=== PATIENT | female | born 1950 | race Caucasian/White ===

== ENCOUNTER 2017-09-09 13:59 | Inpatient (IN) ==
[2017-09-09] MEDS ORDERED: Ampicillin/Sulbactam 3,000 MG in 0.9 % Sodium Chloride Mini Bag 100 ML IVPB SCH (20:00)
[2017-09-09] MEDS ORDERED: Naloxone 0.4 MG/ML INJ IVP PRN (20:11)
[2017-09-09] MEDS ORDERED: Dexamethasone 4 MG/ML VIAL IVP ONE (20:13)
--- NOTE | 2017-09-09 20:20 | Internal Med History&Physical ---
Date of Encounter: 09/09/17 Time of Encounter: 20:16 Internal Medicine - H&P: HPI Chief complaint: Sore throat History of present illness: Ms. Walters is a 67 year old female with a history of A. fib, hypertension, CAD status post stents in 2011 who presents with sore throat to [facility] ED. Was subsequently transferred to [facility] for management of strep a tonsillitis Patient reports acute onset three-day history of sore throat associated with difficulty swallowing - worse with solids better with liquids. Has odynophagia. Has body aches. Associated anorexia. Also reports feeling sweaty with chills. Reports that symptoms were acute in onset. On review of symptoms she had quit smoking 25 years ago. Smoked 2 packs per day for about 15-[address] and laboratory findings from [facility] was personally reviewed. CT soft tissue of the neck with contrast revealed bilateral cervical adenopathy associated with a masslike swelling of the tonsils, vallecula, epiglottis WBC 24.3, hemoglobin 14, platelets 232, bandemia 28%, creatinine 1.04, lactate 1.6 Past Med Surg Social Fam HX - Past Medical History Medical history: arthritis, atrial fibrillation, coronary artery disease, CVA, DVT, GERD, hyperlipidemia, hypertension, kidney stones, migraine, renal disease , syncope, TIA Psychiatric history: anxiety, depression - Past Surgical History Surgical History: hysterectomy, other Additional surgical history: laminectomy morphine pump cardiac stents bladder tuck - Social History Smoking Status: Former smoker Smokeless Tobacco Status: No Alcohol use: none Drug use: none - Family History Father Hx Family Cardiac Disorders: Yes Internal Medicine - H&P: Meds Amlodipine Besylate 2.5 mg PO DAILY 11/23/15 [History] Atorvastatin [Lipitor] 40 mg PO HS 11/23/15 [History] Cholecalciferol (D-3) [Vitamin D] 5,000 unit PO DAILY 11/23/15 [History] Clopidogrel [Plavix] 75 mg PO DAILY 11/23/15 [History] Dabigatran [Pradaxa] 150 mg PO BID 11/23/15 [History] Esomeprazole Magnesium [Nexium] 40 mg PO DAILY 11/23/15 [History] Nitroglycerin [Nitrostat] 0.4 mg SL AD PRN 11/23/15 [History] [place]-3/Dha/Epa/Fish Oil [Fish Oil 1,000 mg Softgel] 1 tab PO BID 11/23/15 [ History] Oxycodone HCl/Acetaminophen [Percocet 10-325 mg Tablet] 1 tab PO Q8H PRN [History] Promethazine HCl 12.5 mg PO BID PRN 11/23/15 [History] Temazepam [Restoril] 30 mg PO HS 11/23/15 [History] Ubidecarenone [Co Q10] 100 mg PO DAILY 11/23/15 [History] Citalopram [CeleXA] 10 mg PO DAILY #0 11/25/15 [Rx] Sotalol [Betapace] 120 mg PO Q12H #60 tablet 11/25/15 [Rx] 3 Allergy/AdvReac Type Severity Reaction Status Date / Time Metaxalone [From Skelaxin] Allergy Severe Hives Verified 06/26/17 09:06 acetaminophen [From Vicodin] AdvReac Severe Hives Verified 06/26/17 09:06 hydrocodone [From Vicodin] AdvReac Severe Hives Verified 06/26/17 09:06 All Systems PM: A 10-system review of systems was performed and is negative for pertinent findings except as documented above in the HPI. Review of systems: ROS 14 point review of systems reviewed as best as possible given presentation. Pertinent positive or negative as per HPI or otherwise reviewed as negative - Constitutional Vitals: Temp Pulse Resp BP Pulse Ox 97.6 F 73 16 133/85 93 09/09/17 18:45 09/09/17 18:45 09/09/17 18:45 09/09/17 18:45 09/09/17 18:45 Exam: General - AAO x 3 Psych - Appropriate affect/speech. No agitation Eyes - BELLE. Eye lids intact. No scleral icterus HEENT - scant whitish exudate along the back of her throat, cervical lymphadenopathy that is tender more on the right than the left Neuro - No gross peripheral or central neuro deficits on inspection Heart - Sinus. RRR. S1 and S2 present. No added HS/murmurs appreciated. No elevated JVD appreciated. Lung - Adequate air entry b/l, No crackles/wheezes appreciated GI - Soft, non-tender. No hepatosplenomegaly/ascites. BS+ - No CVA/suprapubic tenderness or palpable bladder distension Skin - Intact. No rash/petechiae/ecchymosis. Warm extremities - Assessment and plan (1) Strep tonsillitis Current Visit: Yes Status: Acute Assessment and plan: Discussed with ENT production supervisor off shift who will evaluate in the morning. Request to review CT images of the neck. Unfortunately imaging CD was not accompanying transfer. I discussed with the floor to request for [facility] to push through images to our PACS system or to request for a physical CD to be sent. Given cervical adenopathy ENT recommended a Monospot testing ENT will evaluate in the morning with possible that bedside scope In the meantime we would start patient with IV Decadron and continue on IV Unasyn IV fluids Clears for now Trend labs (2) CAD (coronary artery disease) Current Visit: No Status: Chronic Assessment and plan: Status post stent in 2011 on Plavix Qualifiers: Coronary Disease-Associated Artery/Lesion type: [place] artery [place] vs. transplanted heart: [place] heart Associated angina: without angina Qualified Code(s): I25.10 - Atherosclerotic heart disease of [place] coronary artery without angina pectoris (3) PAF (paroxysmal atrial fibrillation) Current Visit: No Status: Chronic Assessment and plan: On per pradaxa and sotalol - Time Spent With Patient Total time spent is greater than 50% in coordination of care (as documented) at patient's floor/unit and/or counseling patient:
[2017-09-09] MEDS: *HR* Dabigatran 150 MG CAPSULE PO SCH (21:22)
[2017-09-09] MEDS: Ringers Solution, Lactated 1,000 ML IVC SCH (21:23)
[2017-09-10] MEDS: Acetaminophen 325 MG TABLET PO PRN ×2 (04:02→16:08)
[2017-09-10] MEDS: Ampicillin/Sulbactam 3,000 MG in 0.9 % Sodium Chloride Mini Bag 100 ML IVPB SCH ×4 (04:04→21:10)
[2017-09-10 06:21] LABS: Basophils % 0.2 %; Hematocrit 36.5 % (35.3-44.9); Hemoglobin 12.4 g/dL (11.5-15.4); Immature Granulocytes % 1.9 % (0-4); Lymphocytes # 1.7 K/mcL (0.6-4.6); Lymphocytes % 9.8 %; Mean Corpuscular Hemoglobin 32.2 pg (28.0-33.3); Mean Corpuscular Volume 94.8 fL (83.0-100.0); Mean Platelet Volume 10.1 fL (9.4-12.4); Monocytes # 0.5 K/mcL (0.0-1.3); Monocytes % 2.7 %; Neutrophils # 15.1 K/mcL (1.6-8.9); Platelet Count 215 K/mcL (140-400); Red Blood Count 3.85 M/mcL (3.82-4.97); Red Cell Distribution Width 13.6 % (11.5-14.5); Segmented Neutrophils % 85.4 %
[2017-09-10 06:39] LABS: Alanine Aminotransferase 12 Units/L (7-52); Albumin 3.5 g/dL (3.5-5.7); Albumin/Globulin Ratio 1.2 (1.1-2.2); Alkaline Phosphatase 56 Units/L (34-104); Aspartate Amino Transferase 14 Units/L (13-39); BUN/Creatinine Ratio 20 (6-26); Bilirubin,Total 0.5 mg/dL (0.3-1.0); Blood Urea Nitrogen 14 mg/dL (8-23); Calcium 8.9 mg/dL (8.6-10.3); Carbon Dioxide 26 mEq/L (23-29); Chloride 106 mEq/L (98-107); Glucose 163 mg/dL (70-105); Osmolality,Calculated 290 (280-300); Potassium 3.6 mEq/L (3.5-5.1); Sodium 138 mEq/L (136-145); Total Protein 6.5 g/dL (6.4-8.9); eGFR For African Americans > 60 (> 60); eGFR For Non-African Americans > 60 (> 60)
--- NOTE | 2017-09-10 07:10 | ENT - Consult Note ---
Date of Encounter: 09/10/17 Time of Encounter: 07:00 Assessment and Plan (1) Strep tonsillitis Current Visit: Yes Status: Acute White female with no prior symptoms related to suspected CT abnormality abnormality on CT consistent with acute infection recommend no further ENT follow-up necessary continue antibiotic course and discharge when appropriate please reconsult ENT if you find it necessary otherwise I will be signing off History of Present Illness Consult date: 09/10/17 Reason for ENT Consult: other (Tonsillitis with incidental CT findings consistent with tongue base vallecular fullness probably related to tonsils) History of present illness: White female 67 years of age history of sudden onset of sore throat 3 days ago not proceeded by any other symptoms including difficulty swallowing patient has had some recurrent hoarseness probably related to some sinus drainage and 6 months ago had a strep infection no interval symptoms she comes in from an outside clinic with a CT suggesting neck irregularity in the oral pharynx larynx the only finding I found on reviewing the CT was fullness in the tongue base vallecula consistent with enlarged tonsils probable associated lingual tonsillitis patient feels like she is doing better on IV antibiotics in hospital Past Med Surg Social Fam HX - Past Medical History Medical history: arthritis, atrial fibrillation, coronary artery disease, CVA, DVT, GERD, hyperlipidemia, hypertension, kidney stones, migraine, renal disease , syncope, TIA Psychiatric history: anxiety, depression - Past Surgical History Surgical History: hysterectomy, other Additional surgical history: laminectomy morphine pump cardiac stents bladder tuck - Social History Smoking Status: Former smoker Smokeless Tobacco Status: No Alcohol use: none Drug use: none - Family History Father Hx Family Cardiac Disorders: Yes Medications and Allergies Amlodipine Besylate 2.5 mg PO DAILY 11/23/15 [History] Atorvastatin [Lipitor] 40 mg PO HS 11/23/15 [History] Cholecalciferol (D-3) [Vitamin D] 5,000 unit PO DAILY 11/23/15 [History] Clopidogrel [Plavix] 75 mg PO DAILY 11/23/15 [History] Dabigatran [Pradaxa] 150 mg PO BID 11/23/15 [History] Esomeprazole Magnesium [Nexium] 40 mg PO DAILY 11/23/15 [History] Nitroglycerin [Nitrostat] 0.4 mg SL AD PRN 11/23/15 [History] [place]-3/Dha/Epa/Fish Oil [Fish Oil 1,000 mg Softgel] 1 tab PO BID 11/23/15 [ History] Oxycodone HCl/Acetaminophen [Percocet 10-325 mg Tablet] 1 tab PO Q8H PRN [History] Promethazine HCl 12.5 mg PO BID PRN 11/23/15 [History] Temazepam [Restoril] 30 mg PO HS 11/23/15 [History] Ubidecarenone [Co Q10] 100 mg PO DAILY 11/23/15 [History] Citalopram [CeleXA] 10 mg PO DAILY #0 11/25/15 [Rx] Sotalol [Betapace] 120 mg PO Q12H #60 tablet 11/25/15 [Rx] 3 Allergy/AdvReac Type Severity Reaction Status Date / Time Metaxalone [From Skelaxin] Allergy Severe Hives Verified 06/26/17 09:06 acetaminophen [From Vicodin] AdvReac Severe Hives Verified 06/26/17 09:06 hydrocodone [From Vicodin] AdvReac Severe Hives Verified 06/26/17 09:06 ENT Exam Initial Vital Signs Temp Pulse Resp BP Pulse Ox 97.6 F 73 16 133/85 93 09/09/17 18:45 09/09/17 18:45 09/09/17 18:45 09/09/17 18:45 09/09/17 18:45 - General physical appearance well developed, well nourished, no distress, no pain. negative: moderate distress, severe distress, moderate pain, severe pain, cachectic, obese - Eyes PERRL, normal ocular movement, icteric - ENT normal pinna, normal nares, normal mucosa, no hearing loss, no congestion, Other (2+ tonsils with exudate laryngeal exam reveals lingual tonsillitis extending into the vallecula particularly on the right side consistent with CT findings). negative: decreased hearing, deviated nasal septum, nasal discharge , poor care home, dentures, mucosal exudate, dry mucosa - Neck no masses, trachea midline, no lymphadectomy, other (A little fullness in the neck and tenderness consistent with tonsillitis). negative: deviated trachea, diffuse goiter, limited ROM - Respiratory normal expansion, normal respiratory effort, clear to percussion, clear to auscultation - Abdomen Abdomen: soft, non tender, bowel sounds, no tender, no surgical scars - Integumentary no rash, no growths, no abnormal pigmentation - Neurologic normal coordination, normal sensation - Musculoskeletal normal gait, normal posture - Psychiatric oriented to time, oriented to person, oriented to place, speech is normal, memory intact Exam Initial Vital Signs Temp Pulse Resp BP Pulse Ox 97.6 F 73 16 133/85 93 09/09/17 18:45 09/09/17 18:45 09/09/17 18:45 09/09/17 18:45 09/09/17 18:45 Results - Labs 09/10/17 06:00 09/10/17 06:00 Abnormal lab results WBC 17.7 K/mcL (4.3-11.1) H 09/10/17 06:00 Neutrophils # 15.1 K/mcL (1.6-8.9) H 09/10/17 06:00 Glucose 163 mg/dL (70-105) H 09/10/17 06:00 Diabetes panel 09/10/17 Range/Units 06:00 Sodium 138 (136-145) mEq/L Potassium 3.6 (3.5-5.1) mEq/L Chloride 106 (98-107) mEq/L Carbon Dioxide 26 (23-29) mEq/L BUN 14 (8-23) mg/dL Creatinine 0.70 (0.60-1.20) mg/dL Glucose 163 H (70-105) mg/dL Calcium 8.9 (8.6-10.3) mg/dL AST 14 (13-39) Units/L ALT 12 (7-52) Units/L Alkaline Phosphatase 56 (34-104) Units/L Albumin 3.5 (3.5-5.7) g/dL Calcium panel 09/10/17 Range/Units 06:00 Calcium 8.9 (8.6-10.3) mg/dL Albumin 3.5 (3.5-5.7) g/dL Pituitary panel 09/10/17 Range/Units 06:00 Sodium 138 (136-145) mEq/L Potassium 3.6 (3.5-5.1) mEq/L Chloride 106 (98-107) mEq/L Carbon Dioxide 26 (23-29) mEq/L BUN 14 (8-23) mg/dL Creatinine 0.70 (0.60-1.20) mg/dL Glucose 163 H (70-105) mg/dL Calcium 8.9 (8.6-10.3) mg/dL Adrenal panel 09/10/17 Range/Units 06:00 Sodium 138 (136-145) mEq/L Potassium 3.6 (3.5-5.1) mEq/L Chloride 106 (98-107) mEq/L Carbon Dioxide 26 (23-29) mEq/L BUN 14 (8-23) mg/dL Creatinine 0.70 (0.60-1.20) mg/dL Glucose 163 H (70-105) mg/dL Calcium 8.9 (8.6-10.3) mg/dL Total Bilirubin 0.5 (0.3-1.0) mg/dL AST 14 (13-39) Units/L ALT 12 (7-52) Units/L Alkaline Phosphatase 56 (34-104) Units/L Albumin 3.5 (3.5-5.7) g/dL All other labs normal. Consult Discharge Plan - Plan Referrals: Nicolas Palomo MD [Primary Care Provider] -
[2017-09-10] MEDS: *HR* Dabigatran 150 MG CAPSULE PO SCH ×2 (07:55→21:08)
[2017-09-10] MEDS: amLODIPine 5 MG TABLET PO SCH (07:56)
[2017-09-10] MEDS: Cholecalciferol (D-3) 1,000 UNIT TABLET PO SCH (07:56)
[2017-09-10] MEDS: Ringers Solution, Lactated 1,000 ML IVC SCH (07:57)
--- NOTE | 2017-09-10 11:31 | Internal Med Progress Note ---
Date of Encounter: 09/10/17 Time of Encounter: 10:15 - Assessment and plan (1) Strep tonsillitis Current Visit: Yes Status: Acute Assessment and plan: Patient reports that this is her second bout of tonsillitis. ENT has evaluated patient. Recommend continued antibiotics. No surgical indications at this time. WBC count trending down. Moderate risk for complication. We will advance diet as tolerated. Place patient on antiemetics for nausea and vomiting. (2) CAD (coronary artery disease) Current Visit: No Status: Chronic Assessment and plan: Continue home medications. No chest pain at this time. Qualifiers: Coronary Disease-Associated Artery/Lesion type: [place] artery [place] vs. transplanted heart: [place] heart Associated angina: without angina Qualified Code(s): I25.10 - Atherosclerotic heart disease of [place] coronary artery without angina pectoris (3) PAF (paroxysmal atrial fibrillation) Current Visit: No Status: Chronic Assessment and plan: On anticoagulation with pradaxa. Rate controlled and in sinus rhythm at this time - Time Spent With Patient Total time spent is greater than 50% in coordination of care (as documented) at patient's floor/unit and/or counseling patient: - Subjective Interval history: Patient continues to have significant pain in her throat although it is improved compared to yesterday. She had an episode of emesis this morning. Denies any difficulty breathing. No fever reported since this morning. - Constitutional Vitals: Temp Pulse Resp BP Pulse Ox 97.6 F 74 16 117/65 96 09/10/17 08:00 09/10/17 08:00 09/10/17 08:00 09/10/17 08:00 09/10/17 08:00 General appearance: Present: cooperative, A&O X 3, pleasant, obese, answers questions appropriately - ENT ENT exam: Present: mucous membranes moist Additional comments: Pharyngeal erythema and tonsillitis - Respiratory Respiratory exam: Present: CTAB. Absent: accessory muscle use, rales, rhonchi, wheezes - Cardiovascular Cardiovascular exam: Present: RRR, +S1, +S2. Absent: diastolic murmur, gallop, rubs, systolic murmur - GI/Abdominal GI/Abdominal exam: Present: normal bowel sounds, soft, no peritoneal signs. Absent: distended, tenderness - Extremities Exam Extremities exam: Present: warm, radial pulses palpable and symmetrical. Absent : calf tenderness, cyanotic, pedal edema Internal Medicine: Result - Labs CBC & Chem 7: 09/10/17 06:00 09/10/17 06:00 Labs: Short CBC 09/10/17 Range/Units 06:00 WBC 17.7 H (4.3-11.1) K/mcL Hgb 12.4 (11.5-15.4) g/dL Hct 36.5 (35.3-44.9) % Plt Count 215 (140-400) K/mcL Neutrophils # 15.1 H (1.6-8.9) K/mcL BMP 09/10/17 06:00 Sodium 138 Potassium 3.6 Chloride 106 Carbon Dioxide 26 BUN 14 Creatinine 0.70 Glucose 163 H Calcium 8.9 Liver Function 09/10/17 Range/Units 06:00 Total Bilirubin 0.5 (0.3-1.0) mg/dL AST 14 (13-39) Units/L ALT 12 (7-52) Units/L Alkaline Phosphatase 56 (34-104) Units/L Albumin 3.5 (3.5-5.7) g/dL Consult Discharge Plan - Plan Referrals: Nicolas Palomo MD [Primary Care Provider] - 09/19/17 3:00 pm
[2017-09-10] MEDS ORDERED: Dexamethasone 4 MG/ML VIAL IVP ONE (15:00)
[2017-09-10] MEDS ORDERED: traZODone 50 MG TABLET PO PRN (23:38)
[2017-09-11] MEDS: Ampicillin/Sulbactam 3,000 MG in 0.9 % Sodium Chloride Mini Bag 100 ML IVPB SCH ×2 (03:37→08:09)
[2017-09-11] MEDS: Acetaminophen 325 MG TABLET PO PRN (03:44)
[2017-09-11 04:25] LABS: Basophils % 0.2 %; Hematocrit 35.1 % (35.3-44.9); Hemoglobin 11.7 g/dL (11.5-15.4); Lymphocytes # 1.8 K/mcL (0.6-4.6); Lymphocytes % 11.7 %; Mean Corpuscular HGB Conc 33.3 g/dL (31.6-35.5); Mean Corpuscular Hemoglobin 31.9 pg (28.0-33.3); Mean Corpuscular Volume 95.6 fL (83.0-100.0); Mean Platelet Volume 10.7 fL (9.4-12.4); Monocytes # 0.6 K/mcL (0.0-1.3); Monocytes % 4.1 %; Neutrophils # 12.7 K/mcL (1.6-8.9); Platelet Count 250 K/mcL (140-400); Red Blood Count 3.67 M/mcL (3.82-4.97); Red Cell Distribution Width 13.7 % (11.5-14.5)
[2017-09-11 04:48] LABS: Alanine Aminotransferase 19 Units/L (7-52); Albumin 3.5 g/dL (3.5-5.7); Albumin/Globulin Ratio 1.3 (1.1-2.2); Alkaline Phosphatase 54 Units/L (34-104); Aspartate Amino Transferase 25 Units/L (13-39); BUN/Creatinine Ratio 18 (6-26); Bilirubin,Total 0.5 mg/dL (0.3-1.0); Blood Urea Nitrogen 14 mg/dL (8-23); Calcium 8.6 mg/dL (8.6-10.3); Carbon Dioxide 28 mEq/L (23-29); Chloride 106 mEq/L (98-107); Globulin 2.8 g/dL (2.4-3.5); Glucose 203 mg/dL (70-105); Osmolality,Calculated 296 (280-300); Potassium 3.8 mEq/L (3.5-5.1); Sodium 140 mEq/L (136-145); Total Protein 6.3 g/dL (6.4-8.9); eGFR For African Americans > 60 (> 60); eGFR For Non-African Americans > 60 (> 60)
[2017-09-11] MEDS: *HR* Dabigatran 150 MG CAPSULE PO SCH (08:09)
[2017-09-11] MEDS: amLODIPine 5 MG TABLET PO SCH (08:09)
[2017-09-11] MEDS: Cholecalciferol (D-3) 1,000 UNIT TABLET PO SCH (08:09)
[2017-09-11 11:19] VITALS: BP 125/69
[2017-09-11] MEDS ORDERED: Nitroglycerin 0.4 MG TAB.SUBL SL PRN (12:37)
--- NOTE | 2017-09-11 12:44 | Discharge Summary ---
- NOTES TO OUTPATIENT PROVIDER Notes to Outpatient Provider: Follow-up with PCP within one week-discuss about ENT referral for possible tonsil removal as recurrent tonsillitis Orders not resulted at time of discharge: Pending orders 09/12/17 04:00 Complete Blood Count [HEME] AM 0400 Comprehensive Metabolic Panel AM 0400 Lactic Acid AM 0400 Date of Encounter: 09/14/17 Time of Encounter: 12:36 - Discharge Diagnosis (1) Strep tonsillitis Priority: Primary Status: Acute Assessment and Plan: Recurrent tonsillitis. This is second episode of tonsillitis within 1 year. Started IV antibiotic Unasyn and consulted ENT specialist who advised to continue antibiotic but no further intervention. CT neck with no acute finding review by ENT specialist. Patient is improving significantly with no fever white count trending down and able to tolerate oral diet. Plan to discharge patient today on oral Augmentin 875 mg by mouth twice a day for total 10 days. Patient also need to discuss with her PCP for referral to ENT specialist and evaluation for possible tonsillectomy. (2) CAD (coronary artery disease) Priority: Secondary Status: Chronic Assessment and Plan: Stable. Continue home medications. Qualifiers: Coronary Disease-Associated Artery/Lesion type: [place] artery [place] vs. transplanted heart: [place] heart Associated angina: without angina Qualified Code(s): I25.10 - Atherosclerotic heart disease of [place] coronary artery without angina pectoris (3) PAF (paroxysmal atrial fibrillation) Priority: Secondary Status: Chronic Assessment and Plan: Normal sinus rhythm. Continue home medicine Hospital course: Ms. Walters is a 67 year old female patient got admitted for severe tonsillitis. IV antibiotic Unasyn was restarted. CT negative with no acute finding. ENT specialist was consulted and advised to continue antibiotic but no further intervention. Patient is improving significantly and able to tolerate oral diet therefore changed to oral antibiotic and plan for discharge today. At the time of discharge patient is clinically stable. Will discharge patient on Augmentin 875 mg by mouth twice a day for 10 days. Patient needs to see PCP within one week and possible referral to ENT for the consideration of selective me if needed. Low-dose of amlodipine was restarted due to high blood pressure while his stay in the hospital. Needs to monitor BP with the help of PCP. Discharge discussed with: patient, nurse - Time Spent with Patient Total time spent providing and/or coordinating discharge services: - Discharge Medications Prescriptions: amLODIPine [Norvasc] 2.5 mg PO DAILY #30 tablet Amoxicillin/Clavulanate [Augmentin] 875 mg PO BIDWM #20 tablet Home Medications: Atorvastatin [Lipitor] 40 mg PO HS 11/23/15 [History] Cholecalciferol (D-3) [Vitamin D] 5,000 unit PO DAILY 11/23/15 [History] Clopidogrel [Plavix] 75 mg PO DAILY 11/23/15 [History] Dabigatran [Pradaxa] 150 mg PO BID 11/23/15 [History] Esomeprazole Magnesium [Nexium] 40 mg PO DAILY 11/23/15 [History] Nitroglycerin [Nitrostat] 0.4 mg SL AD PRN 11/23/15 [History] [place]-3/Dha/Epa/Fish Oil [Fish Oil 1,000 mg Softgel] 1 tab PO BID 11/23/15 [ History] Temazepam [Restoril] 30 mg PO HS 11/23/15 [History] Ubidecarenone [Co Q10] 100 mg PO DAILY 11/23/15 [History] Sotalol [Betapace] 120 mg PO Q12H #60 tablet 11/25/15 [Rx] Lactobacillus Combination No.8 [Adult Probiotic] 1 cap PO DAILY 09/10/17 [ History] Oxybutynin Chloride [Ditropan Xl] 10 mg PO DAILY 09/10/17 [History] traZODone [TraZODone] 50 mg PO HS 09/10/17 [History] Amoxicillin/Clavulanate [Augmentin] 875 mg PO BIDWM #20 tablet 09/11/17 [Rx] amLODIPine [Norvasc] 2.5 mg PO DAILY #30 tablet 09/11/17 [Rx] Allergies/Adverse Reactions: 3 Allergy/AdvReac Type Severity Reaction Status Date / Time Metaxalone [From Skelaxin] Allergy Severe Hives Verified 09/10/17 09:41 acetaminophen [From Vicodin] AdvReac Severe Hives Verified 09/10/17 09:41 hydrocodone [From Vicodin] AdvReac Severe Hives Verified 09/10/17 09:41 Date of admission: 09/09/17 19:09 Primary care physician: Nicolas Palomo MD Consults: 09/09/17 20:15 Consult to ENT [CONS] Routine Consulting Provider: ENT [facility] Reason for Consult: tonsilitis Call Completed: Yes - Constitutional Vitals: Temp Pulse Resp BP Pulse Ox 97.8 F 59 18 125/69 95 09/11/17 11:30 09/11/17 11:30 09/11/17 11:30 09/11/17 11:30 09/11/17 11:30 General appearance: Present: cooperative, A&O X 3, pleasant, obese, answers questions appropriately Exam: General appearance: No acute distress, A&O X 3 Head exam: Atraumatic Eye exam: EOMI, PERRLA ENT exam: Moist oral mucosa. Normal size uvula. Few scattered white spots notice on tonsils bilateral. Normal sign tonsil. Airway patent Neck nontender, supple Respiratory exam: Clear to auscultation bilaterally Cardiovascular exam: Regular rate and rhythm, no systolic murmur Abdominal exam: Soft, nontender, nondistended, positive bowel sounds Extremities exam: No calf tenderness, no pedal edema Present: Skin-no rash, warm, dry, intact Neurological exam: Alert, awake, oriented 3, CN II-XII intact, no focal deficits. No facial droop. Normal speech. - Patient Status Disposition: Home, Self-Care Condition: Good Overall status at discharge: patient is back to baseline - Discharge Instructions Instructions: Amoxicillin/Clavulanate Potassium (By mouth), Amlodipine (By mouth) Follow Up With: Nicolas Palomo MD [Primary Care Provider] - 09/19/17 3:00 pm - Diet and Activity Activity: resume usual activities as tolerated Diet: advance to your usual diet, low fat, low cholesterol, low salt diet
[2017-09-11] MEDS ORDERED: Temazepam 15 MG CAPSULE PO SCH (21:00)
[2017-09-11] MEDS ORDERED: (Omega-3/Dha/Epa/Fish Oil [Fish Oil 1,000 Mg Softgel]) PO SCH (21:00)
[2017-09-11] MEDS ORDERED: traZODone 50 MG TABLET PO SCH (21:00)
[2017-09-12] MEDS ORDERED: Lactobacillus 1 EACH CAP.SPRINK PO SCH (09:00)
[2017-09-12] MEDS ORDERED: (Ubidecarenone [Co Q10] 100 MG) PO SCH (09:00)
== END 2017-09-11 14:05 | disposition home or self-care (01) | DRG 153 ==
LOC: 2NNU 19:09
PROVIDERS: ADMIT Family Medicine; ATTEND Family Medicine

== ENCOUNTER 2019-11-26 10:44 | Inpatient (IN) ==
[2019-11-26] MEDS ORDERED: CeFAZolin Syr 2,000MG/20 ML 2,000 MG/20 ML SYRINGE IVPB ONE (11:56)
[2019-11-26] MEDS ORDERED: Ringers Solution, Lactated 1,000 ML IVC SCH (12:00)
[2019-11-26] MEDS ORDERED: Ondansetron 4 MG/2 ML VIAL IVP ONE (12:09)
[2019-11-26] MEDS ORDERED: *HR* OxyCODONE Immed Rel 5 MG TABLET PO PRN ×2 (12:09→22:48)
[2019-11-26] MEDS ORDERED: Vancomycin 1,250 MG/262.5 ML IV.SOLN IVPB ONE (12:18)
[2019-11-26] MEDS ORDERED: Vancomycin 1,000 MG, Sodium Chloride IRRigation 1,000 ML IR ONE (12:30)
[2019-11-26] MEDS ORDERED: Heparin 1,000 UNITS/500 mL 500 ML ONE ×2 (15:39→16:35)
[2019-11-26] MEDS ORDERED: Dexamethasone 4 MG/ML VIAL ONE ×3 (16:26→19:10)
[2019-11-26] MEDS ORDERED: *HR* Succinylcholine 200 MG/10 ML VIAL IVP ONE (16:26)
[2019-11-26] MEDS ORDERED: *HR* Rocuronium Bromide 50 MG/5 ML VIAL ONE (16:26)
[2019-11-26] MEDS ORDERED: Lidocaine -MPF 2% 2 ML VIAL ONE (16:26)
[2019-11-26] MEDS ORDERED: Ondansetron 4 MG/2 ML VIAL ONE (16:26)
[2019-11-26] MEDS ORDERED: Lidocaine HCL 4 ML Topical Solution (Laryng-O-Jet Kit Sterile Pak) TP ONE (16:26)
[2019-11-26] MEDS ORDERED: *HR* FentaNYL (PF) 100 MCG/2 ML VIAL ONE (16:27)
[2019-11-26] MEDS ORDERED: *HR* Propofol 200 MG/20 ML VIAL IVP ONE (16:27)
[2019-11-26] MEDS ORDERED: EPHEDrine 50 MG/ML VIAL ONE (16:29)
[2019-11-26] MEDS ORDERED: *HR* Heparin 5,000 UNIT/ML VIAL ONE (16:31)
[2019-11-26] MEDS ORDERED: Protamine Sulfate 50 MG/5 ML VIAL IVP ONE (16:34)
[2019-11-26] MEDS ORDERED: Bupivacaine-MPF 0.25% 10 ML VIAL ONE (16:35)
[2019-11-26] MEDS ORDERED: NiCARdipine 2.5 MG/10 ML Syringe IVPB ONE (16:47)
[2019-11-26] MEDS ORDERED: *HR* Labetalol 20 MG/4 ML SYRINGE IVP ONE (18:01)
[2019-11-26] MEDS ORDERED: *HR* HYDROMORPHONE 2 MG/ML VIAL ONE (18:20)
[2019-11-26] MEDS: *HR* HYDROmorphone PF 0.5 MG/0.5 ML SYRINGE IVP PRN ×3 (19:55→20:16)
[2019-11-26] MEDS ORDERED: *HR* Labetalol 20 MG/4 ML SYRINGE IVP PRN ×2 (19:56→22:48)
[2019-11-26] MEDS ORDERED: *HR* Promethazine 25 MG/ML VIAL IVP PRN (19:56)
[2019-11-26] MEDS ORDERED: Acetaminophen 325 MG TABLET PO PRN (22:48)
[2019-11-26] MEDS ORDERED: *HR* Dextrose 50 % in Water (Vial) 50 ML VIAL IVP PRN (22:48)
[2019-11-26] MEDS ORDERED: Naloxone 0.4 MG/ML INJ IVP PRN (22:48)
[2019-11-26] MEDS ORDERED: Ondansetron 4 MG/2 ML VIAL IVP PRN (22:48)
[2019-11-26] MEDS ORDERED: Nitroglycerin 0.4 MG TAB.SUBL SL PRN (22:48)
[2019-11-26] MEDS ORDERED: 0.9 % Sodium Chloride 1,000 ML IVC SCH (22:48)
[2019-11-26] MEDS ORDERED: Insulin LISPRO 300 UNITS/3 ML VIAL SQ SCH (22:48)
[2019-11-26] MEDS ORDERED: *HR* OxyCODONE/APAP 5/325 TABLET PO PRN (22:48)
[2019-11-26] MEDS ORDERED: Dextrose Gel 15 GM/37.5 ML TUBE PO PRN ×2 (22:48)
[2019-11-26] MEDS ORDERED: D5% in Water 1,000 ML IVC PRN (22:48)
[2019-11-27] MEDS: *HR* Metoprolol 5 MG/5 ML VIAL IVP SCH ×2 (00:16→05:22)
[2019-11-27] MEDS: CeFAZolin 2 GM/120 ML BAG IVPB SCH ×2 (00:34→08:07)
[2019-11-27] MEDS ORDERED: Insulin LISPRO 300 UNITS/3 ML VIAL SQ ONE ×3 (03:55→11:38)
[2019-11-27] MEDS ORDERED: *HR* Heparin 5,000 UNIT/ML VIAL SQ SCH (06:00)
[2019-11-27] MEDS ORDERED: Insulin LISPRO 300 UNITS/3 ML VIAL SQ SCH ×2 (07:24→07:30)
[2019-11-27] MEDS: Insulin LISPRO 300 UNITS/3 ML VIAL SQ SCH ×2 (08:00→11:57)
[2019-11-27] MEDS ORDERED: Lactobacillus 1 EACH CAP.SPRINK PO SCH (09:00)
[2019-11-27] MEDS ORDERED: Cholecalciferol (D-3) 1,000 UNIT (25MCG) TABLET PO SCH (09:00)
[2019-11-27] MEDS ORDERED: amLODIPine 5 MG TABLET PO SCH (09:00)
[2019-11-27] MEDS ORDERED: Insulin LISPRO 300 UNITS/3 ML VIAL SQ STA (09:41)
[2019-11-27 12:00] VITALS: BP 109/59
[2019-11-27] MEDS ORDERED: *HR* Dabigatran 150 MG CAPSULE PO SCH (21:00)
[2019-11-27] MEDS ORDERED: Temazepam 15 MG CAPSULE PO SCH (21:00)
== END 2019-11-27 13:40 | disposition home or self-care (01) | DRG 39 ==
LOC: SAMDAY 10:44 → 2NNU 21:01
PROVIDERS: ADMIT Surgery; ATTEND Surgery